=== PATIENT | female | born 1960 | race Hispanic/Latino ===

== ENCOUNTER 2024-02-29 11:28 | Emergency (ER) | payer BC ==
[~2024-02-29] VITALS: Ht 154.9 cm; Wt 56.7 kg
[2024-02-29] MEDS: 0.9%NACL 1000ML 1,000 ML IV ONE (11:55)
[2024-02-29 12:08] LABS: BASOPHILS # (AUTO) 0.03 K/uL (0.00-0.20); BASOPHILS % (AUTO) 0.4 % (0.0-5.0); EOSINOPHILS # (AUTO) 0.05 K/uL (0.00-0.70); EOSINOPHILS % (AUTO) 0.6 % (0.0-8.0); HEMATOCRIT 41.4 % (36-48); IMMATURE GRANULOCYTE ABSOLUTE 0.02 K/uL (0-1); LYMPHOCYTES % (AUTO) 24.3 % (21.0-51.0); MEAN CORPUSCULAR HEMOGLOBIN 30.1 pg (27.0-33.0); MEAN CORPUSCULAR HGB CONC 34.5 g/dL (32.0-36.0); MEAN CORPUSCULAR VOLUME 87.2 fL (79-99); MONOCYTES # (AUTO) 0.6 K/uL (0.1-1.0); NEUTROPHILS # (AUTO) 5.5 K/uL (1.8-7.7); NEUTROPHILS % (AUTO) 67.5 % (40.0-77.0); PLATELET COUNT (AUTO) 335 K/uL (130-400); RED BLOOD CELL COUNT(AUTO) 4.75 MIL/uL (4.00-5.50); RED CELL DISTRIBUTION WIDTH 12.7 % (11.0-15.5); WHITE BLOOD COUNT (AUTO) 8.2 K/uL (4.8-10.8)
[2024-02-29 12:17] LABS: CREATININE 0.9 mg/dL (0.5-1.0); POTASSIUM 3.9 mmol/L (3.5-5.1)
[2024-02-29] MEDS: ASPIRIN 325MG TAB PO ONE (12:41)
[2024-02-29] MEDS: HEParin 5,000 UNIT VIAL IV PRN (12:42)
[2024-02-29 12:43] LABS: B-TYPE NATRIURETIC PEPTIDE 421 pg/mL (0-100)
[2024-02-29] MEDS: HEParin 25,000 UNITS/250ML D5W 250 ML IV SCH (12:50)
--- NOTE | 2024-02-29 12:53 | NUR ---
[place] [facility] [place] AND PT WOULD LIKE TO BE TRANSFER OUT. MARNI ANGEL
--- NOTE | 2024-02-29 12:55 | ERN ---
General Chief Complaint: Palpitations Stated Complaint: PALPITATIONS Time Seen by MD: 11:32 History of Present Illness Initial Comments This is an otherwise healthy 63-year-old female who presents for palpitations beginning yesterday. Patient reports for the last 12-18 hours she has been feeling hard heart beating in her chest. Sometimes it is fast. She denies flank pain or dyspnea. She reports that it kept her up throughout the night. No other symptoms. Denies medical conditions. Allergies: Coded Allergies: No Known Drug Allergies (Unverified Allergy, Unknown, 02/29/24) Past Medical History Past Medical History: No Pertinent History Past Surgical History: Other Surgical History Other: RT FA SX ROS Dictation CONSTITUTIONAL: No chills, no fever, no weakness, no diaphoresis, no malaise. HEAD/FACE: No signs of trauma. EENT: No eye pain, no blurred vision, no tearing, no double vision, no ear pain, no ear discharge, no nose pain, no nasal congestion, no throat pain, no throat swelling, no mouth pain. RESPIRATORY: No cough, no orthopnea, no SOB, no stridor, no wheezing. CARDIOVASCULAR: Chest palpitations GASTROINTESTINAL/ABDOMINAL: No abdominal pain, no constipation, no diarrhea, no nausea, no vomiting. GENITOURINARY: No abnormal discharge, no dysuria, no frequent urination, no hematuria. No complaints of pain in the genitals. MUSCULOSKELETAL: No back pain, no gout, no joint pain, no joint swelling, no muscle pain, no muscle stiffness, no neck pain. INTEGUMENTARY: No change in color, no change in hair/nails, no dryness, no lesion, no lumps, no rash. NEUROLOGICAL/PSYCH: No anxiety, not depressed, no emotional problem, no headache, no numbness, no pre-existing deficit, no history of seizures, no tremors, no weakness. HEMATOLOGIC/LYMPHATIC: Not anemic, no history of blood clots, no apparent bleeding, no bruising, glands not swollen. All Systems Negative, Except as Noted. Physical Exam Physical Exam Dictation VITAL SIGNS: Reviewed. GENERAL APPEARANCE: Alert, oriented x3, no acute distress HEAD AND FACE: Non-traumatic. EYES: PERRL, pink conjunctivas, eyelid no trauma, anterior chamber clear. EARS: Pinnas intact and no signs of trauma or erythema. Ear canals clear and no discharge. TMs no erythema. NOSE: No discharge, no bleeding. OROPHARYNX: Mouth normal, teeth no caries, tongue pink. Pharynx clear, no erythema. Tonsils no exudates, no abscesses noted. Mucous membrane moist. NECK: Supple, non-tender, no thyromegaly, no masses, no JVD, no bruits. BREAST: Deferred. CHEST: No tenderness, no crepitus, no paradoxical movement, no retractions. LUNGS: Clear, well-ventilated, symmetric, no rales, no wheezing, no rhonchi, no stridor, good breath sounds bilaterally. HEART: Regular rate, regular rhythm, no murmur, no gallops. VASCULAR: No peripheral edema. ABDOMEN: Soft, positive bowel sounds, nondistended, no guarding, nontender, no rebound, no masses no hepatomegaly, no splenomegaly, no Jesus's sign, no hernias. RECTAL: Deferred. GENITAL: Deferred. NEUROLOGICAL: Normal speech, gross motor function intact, gross sensory function intact. MUSCULOSKELETAL: Neck nontender, full range of motion, back nontender, full range of motion. EXTREMITIES: Nontender, full range of motion. SKIN: Color pink, dry, no turgor, no rash, no lacerations, no abrasions, no contusions. LYMPHATICS: Deferred. Results Laboratory and Microbiology Lab and Micro Result Laboratory Tests Test 02/29/24 11:38 02/29/24 13:10 White Blood Count 8.2 K/uL (4.8-10.8) Red Blood Count 4.75 MIL/uL (4.00-5.50) Hemoglobin 14.3 g/dL (12.0-16.0) Hematocrit 41.4 % (36-48) Mean Corpuscular Volume 87.2 fL (79-99) Mean Corpuscular Hemoglobin 30.1 pg (27.0-33.0) Mean Corpuscular Hemoglobin Concent 34.5 g/dL (32.0-36.0) Red Cell Distribution Width 12.7 % (11.0-15.5) Platelet Count 335 K/uL (130-400) Mean Platelet Volume 9.3 fL (7.5-10.5) Immature Granulocyte % (Auto) 0.2 % (0-1) Neutrophils (%) (Auto) 67.5 % (40.0-77.0) Lymphocytes (%) (Auto) 24.3 % (21.0-51.0) Monocytes (%) (Auto) 7.0 % (3.0-13.0) Eosinophils (%) (Auto) 0.6 % (0.0-8.0) Basophils (%) (Auto) 0.4 % (0.0-5.0) Neutrophils # (Auto) 5.5 K/uL (1.8-7.7) Lymphocytes # (Auto) 2.0 K/uL (1.0-4.8) Monocytes # (Auto) 0.6 K/uL (0.1-1.0) Eosinophils # (Auto) 0.05 K/uL (0.00-0.70) Basophils # (Auto) 0.03 K/uL (0.00-0.20) Absolute Immature Granulocyte (auto 0.02 K/uL (0-1) Nucleated Red Blood Cells 0.0 % (0.0-0.19) Activated Partial Thromboplast Time 26.5 SEC (26.3-35.5) D-Dimer Quantitative (PE/DVT) 355 ng/mL (0-500) Sodium Level 142 mmol/L (136-145) Potassium Level 3.9 mmol/L (3.5-5.1) Chloride Level 105 mmol/L (101-111) Carbon Dioxide Level 28 mmol/L (21-32) Blood Urea Nitrogen 16 mg/dL (7-18) Creatinine 0.9 mg/dL (0.5-1.0) Glomerular Filtration Rate Calc 72 mL/min (>90) Random Glucose 115 mg/dL (70-105) H Total Calcium 9.0 mg/dL (8.5-10.1) Magnesium Level 2.00 mg/dL (1.80-2.40) Troponin I High Sensitivity 1079 ng/L (4-50) *H 2197 ng/L (4-50) *H B-Type Natriuretic Peptide 421 pg/mL (0-100) H MDM John CC: Palpitations subsequently thorax Historian: Patient Comorbidities: Denies Limitations by social determinants of health: None Differential diagnosis: Arrhythmia, ACS, pulmonary embolism, anxiety, electrolyte abnormality,other EKG: NSR, rate 81 normal axis good R-wave progression intervals are stable. Vital signs stable Clinical exam is unremarkable. No signs of heart failure. Normal heart tones. Nontoxic in appearance. Labs (independently ordered and interpreted by me ): CBC is normal. Metabolic panel is normal. Troponin came back elevated at 1000, consistent with NSTEMI. Patient given an aspirin, since she is currently still feeling the palpitations, started on a heparin drip. I discussed the case with the family. They report that this hospitalist out of their insurance network and they are requesting transfer to [facility]. ED Course Orders Procedure Category Date Status Time Cbc With Differential LAB 02/29/24 Complete 11:44 B-Type Natriuretic LAB 02/29/24 Complete Peptide 11:44 D-Dimer LAB 02/29/24 Complete 11:44 Chest 1vw RAD 02/29/24 Resulted 11:44 12 Lead Ekg Tracing- EKG 02/29/24 Resulted Technical 11:44 Troponin I High LAB 02/29/24 Complete Sensitivity 11:44 Basic Metabolic Panel LAB 02/29/24 Complete 11:44 Magnesium LAB 02/29/24 Complete 11:44 Drug Screen Urine LAB 02/29/24 Logged 11:44 0.9%Nacl 1000ml (Ns PHA 02/29/24 Complete 1000ml) 12:00 Aspirin 325mg Tab PHA 02/29/24 Complete (Aspirin 325mg Tab) 13:00 Initiate Heparin ELINOR 02/29/24 In Process Treatment Pro 12:34 Cbc With Differential LAB 03/01/24 Verified 04:00 Cbc With Differential LAB 03/04/24 Verified 04:00 Cbc With Differential LAB 03/07/24 Verified 04:00 Partial LAB 02/29/24 Complete Thromboplastin Time 12:34 Heparin 5,000 Unit PHA 02/29/24 In Process Vial (Heparin 5,000 U 13:30 Heparin 25,000 PHA 02/29/24 In Process Units/250ml D5w 13:30 Heparin Protocol CPOE 02/29/24 Transmitted Monitoring 12:34 Troponin I High LAB 02/29/24 Complete Sensitivity 13:05 12 Lead Ekg Tracing- EKG 02/29/24 Resulted Technical 14:10 Clopidogrel 300mg Tab PHA 02/29/24 Complete (Plavix 300mg Tab) 16:30 Troponin I High LAB 02/29/24 Logged Sensitivity 19:00 12 Lead Ekg Tracing- EKG 02/29/24 Logged Technical 19:00 Current Medications Medications (Trade) Dose Ordered Sig/Roxanne Route PRN Reason Start Time Stop Time Status Last Admin Dose Admin Aspirin (Aspirin 325mg Tab) 325 mg ONCE ONCE PO 02/29/24 13:00 02/29/24 13:01 DC 02/29/24 12:41 Clopidogrel Bisulfate (plaVIX 300MG TAB) 600 mg ONCE ONCE PO 02/29/24 16:30 02/29/24 16:31 DC 02/29/24 16:19 Heparin Sodium (Porcine) (HEParin 5,000 UNIT VIAL) *calculation based on ACTUAL B... AD PRN IV HEPARIN PROTOCOL 02/29/24 13:30 03/30/24 13:29 02/29/24 12:42 Heparin Sodium/ Dextrose 250 ml @ 0 mls/hr Q6H IV 02/29/24 13:30 03/30/24 13:29 02/29/24 12:50 Sodium Chloride 1,000 ml @ 0 mls/hr ONCE ONCE IV 02/29/24 12:00 02/29/24 12:01 DC 02/29/24 11:55 Vital Signs Date Time Temp Pulse Resp B/P (MAP) Pulse Ox O2 Delivery O2 Flow Rate FiO2 02/29/24 13:39 98.2 70 16 84/57 98 Room Air* 0 21 02/29/24 11:40 98.2 77 20 92/63 98 Room Air* 0 21 02/29/24 11:36 97.9 154 18 130/74 98 Room Air 0 DX & DISP Disposition: Transfer ([facility] [place]) Departure Impression: Primary Impression: NSTEMI (non-ST elevated myocardial infarction) Critical Time: 30 minutes (Critical Care Procedure NoteAuthorized and Performed by: meTotal critical care time: Approximately 36 minutesDue to a high probability of clinically significant, life threatening deterioration, the patient required my highest level of preparedness to intervene emergently and I personally spent this critical care time directly and personally managing the patient. This critical care time included obtaining a history; examining the patient; pulse oximetry; ordering and review of studies; arranging urgent treatment with development of a management plan; evaluation of patient's response to treatment; frequent reassessment; and, discussions with other providers.This critical care time was performed to assess and manage the high probability of imminent, life-threatening deterioration that could result in multi-organ failure. It was exclusive of separately billable procedures and treating other patients and teaching time.Please see MDM section and the rest of the note for further information on patient assessment and treatment.) Condition: Stable Referrals: NONE (PCP) BOLA MCLAUGHLIN DO Feb 29, 2024 12:55
--- NOTE | 2024-02-29 13:18 | HMCIMG ---
Exam Type: CHEST 1VW Clinical Information: palpitations Comparison: None Findings: The lungs are clear of infiltrates. The heart is normal in size. The bony and soft tissue structures of the chest are unremarkable. Impression: Clear lungs.
--- NOTE | 2024-02-29 13:20 | NUR ---
[place]SFER [place]ACE [place] [facility] [place] [facility] SPOKE WITH MICHELE INFORMATION PROVIDED AND WILL CALL BACK. MARNI ANGEL
--- NOTE | 2024-02-29 14:18 | EKG ---
[facility] Test Date: 2024-02-29 Test Time: 14:12:35 Pat Name: VENUS VARNER Department: EDH Room: Gender: F Track Hoe Operator: 1378 : 1960 Requested By: BOLA MCLAUGHLIN Order Number: [id number] Reading MD: Stephanie Shankar Measurements Intervals [place] Rate: 66 P: 57 NM: 124 QRS: -12 QRSD: 84 T: 140 QT: 419 QTc: 440 Interpretive Statements Sinus rhythm Abnrm T, consider ischemia, anterolateral lds No previous ECG available for comparison Electronically Signed On 02-29-2024 16:20:59 CUT AND PRINT MACHINE OPERATOR by Stephanie Shankar Please click the below link to view image of tracing.
--- NOTE | 2024-02-29 14:20 | NUR ---
TRANSFER PENDING APPROVAL FROM ADMINISTRATION PER TRANSFER INTAKE NURSE ANN-MARIE GRIDER
--- NOTE | 2024-02-29 14:50 | NUR ---
TRANSFER UPDATE CALL PLACE TO [facility] [place] EMPLOYMENT AND CLAIMS AIDE STATES ADMINISTRATION ACCEPTED THE PT NOW PENDING A BED ON THE PCCU UNIT, ON THE LIST. HS ALSO MENTION SHE IS HOLDING IN THE ER SO IT WILL BE A WHILE. MARNI ANGEL
--- NOTE | 2024-02-29 14:55 | NUR ---
MET WITH PT AND DAUGHTER TRANSFER PROCESS EXPLAINED AND BOTH VERBLIZED UNDERSTANDING WOULD LIKE TO REMAIN ON THE LIST FOR [facility],MEAN WHILE TREATMENT WILL CONTINUE HERE IN THE ER. ER DOCTOR MADE AWARE. MARNI ANGEL
--- NOTE | 2024-02-29 16:09 | CONS ---
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 Trop 1079 and trended up to 2197. Initial ECG with TWI in v1-v5 and flat T waves in I and aVL. The second repeat ECG showed TWI I and aVL and v1-v6. No diaphoresis or syncope or CR. During my assessment, she denies chest pain. She has been given aspirin load and heparin gtt. She is pending transfer to as her insurance is out of network here. ] Past Medical History: [ ] Past Surgical History: [ ] Family History: [ ] Social History: [ ] Habits: [Never] smoker. [Denies] alcohol consumption. [Denies] illicit drug use Home Meds: [ ] Current Meds: [ ] Review of Systems: CONST: [No fever, fatigue, or weight changes.] EYES: [No recent vision problems.] ENT: [No congestion, ear pain, or sore throat.] C/V: [No chest pain. + palpitations. no edema.] RESP: [No cough, congestion, wheezing or shortness of breath.] GI: [No abdominal pain, nausea, vomiting, constipation, or diarrhea.] : [No incontinence or dysuria.] SKIN: [No rash.] NEURO: [No headache, focal numbness or weakness, dizziness, or seizures.] PSYCH: [No depression or anxiety.] HEME: [No abnormal bruising or bleeding.] LYMPH: [No swollen glands.] Physical Examination: GENERAL: [No acute distress.] HEAD: [Normal with no signs of head trauma.] EYES: [PERRLA, EOMI, conjunctiva and sclera normal.] ENT: [Hearing grossly intact, normal oropharynx.] NECK: [Supple without JVD. There is no tenderness, lymphadenopathy, or masses. No thyromegaly. Normal carotid upstrokes without bruits.] LUNGS: [Clear breath sounds bilaterally. There are right basilar rales one third of the way up the chest. No wheezes, or rhonchi.] HEART: [Normal rate and rhythm. Normal S1 and S2 without mumurs, gallop or rub.] VASC: [Peripheral pulses +2 bilaterally.] ABD: [Bowel sounds normal, soft, nontender, no masses, no organomegaly. No audible bruits.] : [Not examined] LYMPH: [No lymphadenopathy noted.] EXT: [No clubbing, cyanosis or edema.] SKIN: [No rashes or lesions noted.] NEURO: [Awake, alert, and oriented x3. No focal sensory or strength deficits noted.] Vital Signs (last 8hr) Date Time Temp Pulse Resp B/P (MAP) Pulse Ox O2 Delivery O2 Flow Rate FiO2 02/29/24 13:39 98.2 70 16 84/57 98 Room Air* 0 21 02/29/24 11:40 98.2 77 20 92/63 98 Room Air* 0 21 02/29/24 11:36 97.9 154 18 130/74 98 Room Air 0 Laboratory: [ ] Hematology Labs: Test 02/29/24 11:38 Range/Units White Blood Count 8.2 4.8-10.8 K/uL Red Blood Count 4.75 4.00-5.50 MIL/uL Hemoglobin 14.3 12.0-16.0 g/dL Hematocrit 41.4 36-48 % Mean Corpuscular Volume 87.2 79-99 fL Mean Corpuscular Hemoglobin 30.1 27.0-33.0 pg Mean Corpuscular Hemoglobin Concent 34.5 32.0-36.0 g/dL Red Cell Distribution Width 12.7 11.0-15.5 % Platelet Count 335 130-400 K/uL Mean Platelet Volume 9.3 7.5-10.5 fL Immature Granulocyte % (Auto) 0.2 0-1 % Neutrophils (%) (Auto) 67.5 40.0-77.0 % Lymphocytes (%) (Auto) 24.3 21.0-51.0 % Monocytes (%) (Auto) 7.0 3.0-13.0 % Eosinophils (%) (Auto) 0.6 0.0-8.0 % Basophils (%) (Auto) 0.4 0.0-5.0 % Neutrophils # (Auto) 5.5 1.8-7.7 K/uL Lymphocytes # (Auto) 2.0 1.0-4.8 K/uL Monocytes # (Auto) 0.6 0.1-1.0 K/uL Eosinophils # (Auto) 0.05 0.00-0.70 K/uL Basophils # (Auto) 0.03 0.00-0.20 K/uL Absolute Immature Granulocyte (auto 0.02 0-1 K/uL Nucleated Red Blood Cells 0.0 0.0-0.19 % Chemistry Labs: Test 02/29/24 13:10 02/29/24 11:38 Range/Units Troponin I High Sensitivity 2197 *H 4-50 ng/L Sodium Level 142 136-145 mmol/L Potassium Level 3.9 3.5-5.1 mmol/L Chloride Level 105 101-111 mmol/L Carbon Dioxide Level 28 21-32 mmol/L Blood Urea Nitrogen 16 7-18 mg/dL Creatinine 0.9 0.5-1.0 mg/dL Glomerular Filtration Rate Calc 72 >90 mL/min Random Glucose 115 H 70-105 mg/dL Total Calcium 9.0 8.5-10.1 mg/dL Magnesium Level 2.00 1.80-2.40 mg/dL B-Type Natriuretic Peptide 421 H 0-100 pg/mL Coagulation Labs: Test 02/29/24 11:38 Range/Units Activated Partial Thromboplast Time 26.5 26.3-35.5 SEC D-Dimer Quantitative (PE/DVT) 355 0-500 ng/mL Diagnostics / Radiology: [Copy/Paste Echos/Imaging Report here] Assessment: [ NSTEMI Palpitations due to PVCs] Plan: [ #NSTEMI -heparin gtt, asa 325 mg x1, plavix 600 mg x1 -will trend Troponin until it downtrends -ECG at 1900 and repeat Trop Patient is pending transfer to , Thank you for this consult. We will continue to follow. Stephanie Shankar MD] STEPHANIE SHANKAR MD Feb 29, 2024 16:09
[2024-02-29] MEDS: cloPIDOgrel 300MG TAB PO ONE (16:19)
--- NOTE | 2024-02-29 16:21 | EKG ---
[facility] Test Date: 2024-02-29 Test Time: 16:15:20 Pat Name: VENUS VARNER Department: ED Room: Gender: Female Certified Pesticide Applicator: 1378 : 1960 Requested By: BOLA MCLAUGHLIN Order Number: [id number] Reading MD: Stephanie Shankar Measurements Intervals [place] Rate: 63 P: 58 MI: 125 QRS: 0 QRSD: 84 T: 141 QT: 435 QTc: 446 Interpretive Statements Sinus rhythm Abnrm T, consider ischemia, anterolateral lds Compared to ECG 02/29/2024 14:12:35 No significant changes Electronically Signed On 02-29-2024 16:21:04 GLOBAL COMMODITY MANAGER by Stephanie Shankar Please click the below link to view image of tracing.
--- NOTE | 2024-02-29 17:37 | NUR ---
TRANSFER , INTAKE NURSE CALL WITH ACCEPTANCE UNDER DR TIN BROOKE TO ROOM 1320 AND PRIMARY NURSE TO CALL REPORT TO [phone] AND EMS WHEN READY. MARNI ANGEL
--- NOTE | 2024-02-29 18:05 | NUR ---
first attempt to call [facility] placed on hold over 5 min no nurse came to phone
--- NOTE | 2024-02-29 18:09 | NUR ---
EMS CALLED AT THIS TIME. PAPERWORK FAXED PER WIND OPERATIONS SUPERVISOR.
--- NOTE | 2024-02-29 18:14 | NUR ---
second attempt to provide report placed on hold over 5 min nurse currently providing patient care
--- NOTE | 2024-02-29 18:26 | NUR ---
report provided to [facility]iel [facility] [place]
[2024-02-29 18:53] VITALS: BP 89/66; PULSE 71; RESP 16; TEMP 98.3; O2SAT 98
[2024-02-29 19:23] LABS: INR 1.02 (0.85-1.15)
[2024-02-29 19:44] LABS: PARTIAL THROMBOPLASTIN TIME 107.7 SEC (26.3-35.5)
--- NOTE | 2024-03-01 06:57 | EKG ---
[facility] Test Date: 2024-02-29 Test Time: 11:41:32 Pat Name: VENUS VARNER Department: ED Room: Gender: F Hall Clerk: 1378 : 1960 Requested By: STEPHANIE SHANKAR Order Number: [id number] Reading MD: Stephanie Shankar Measurements Intervals [place] Rate: 81 P: 61 PA: 135 QRS: -19 QRSD: 75 T: 85 QT: 375 QTc: 427 Interpretive Statements Sinus rhythm Ventricular premature complex Probable left atrial enlargement No previous ECG available for comparison Electronically Signed On 03-01-2024 08:20:44 AIRPORT REPRESENTATIVE by Stephanie Shankar Please click the below link to view image of tracing.
== END 2024-02-29 19:11 | disposition short-term general hospital (02) ==
LOC: EDH 11:28
DX: I21.4 Non-ST elevation (NSTEMI) myocardial infarction (principal); F17.200 Nicotine dependence, unspecified, uncomplicated
CPT/HCPCS: 99291; 96365; 96361; 83735; 84484 ×3; 80048; 83880; 85025; 85378; 85610; 85730 ×2; 36415; 71045; 93005 ×3; J7030; J1644 ×2